=== PATIENT | female | born 1990 | race Caucasian/White ===

== ENCOUNTER 2016-07-25 14:38 | Emergency (ER) | payer OTHER ==
[~2016-07-25] VITALS: Ht 175.3 cm; Wt 97.7 kg
[~2016-07-25 14:38] MED LIST: AURALGAN14.8 ML RIGHT EAR; BACTRIM,SEPT1 TABLET PO; CIPRO HC OTIC S10 ML RIGHT EAR; CLEOCIN300 MG PO; CLINDAMYCIN HC300 MG PO; DARVOCET-N 1001 EAC1 PO; ENDOCET 5-3251 EACH PO; FLEXERIL10 MG PO; HYDROCODON-ACE1 EAC7 PO; IBUPROFEN800 MG PO; KEFLEX500 MG PO; LOTRISONE15 GM TP; METHADONE1 MG/1 ML PO; METHADONE10 MG PO; MIRALAX17 GM PO; MOTRIN800 MG PO; NAPROSYN500 MG PO; NEXPLANON68 MG SC; NOHOMEMEDS; PREDNISONE10 MG PO; PRENATAL TABLE1 EAC3 PO; Tylenol Regular Stre PO; ULTRAM50 MG PO; ZOFRAN ODT4 MG PO
[2016-07-25 16:04] LABS: ADD MIUA? YES; BILIRUBIN NEGATIVE; BLOOD LARGE; COLOR AMBER ((YELLOW)); GLUCOSE (STRIP) NEGATIVE; KETONES 5; LEUKOCYTES SMALL; NITRITE NEGATIVE; PROTEIN (STRIP) 100; SPECIFIC GRAVITY 1.029 (1.000-1.030)
[2016-07-25 16:29] LABS: BACTERIA RARE /HPF; EPITHELIAL CELLS 3+ /HPF; MUCUS TRACE /LPF; RED BLOOD CELLS 20-30 /HPF (0-5); UCUL ADDED? NO
[2016-07-25 17:03] LABS: HEMATOCRIT 42.6 % (36.0-46.0); MCH 27.6 PG (29.0-34.0); MCV 81.1 FL (83-99); MEAN PLAT.VOLUME 9.7 uM^3 (9.5-12.4); PLATELET COUNT 318 K/uL (156-360); RBC DIS.WIDTH-CV 13.2 % (11.8-14.6); RBC DIS.WIDTH-SD 38.4 % (39-53); RED BLOOD COUNT 5.25 M/uL (3.80-5.20); WHITE BLOOD COUNT 11.8 K/uL (4.1-10.2)
[2016-07-25 17:11] LABS: CHLORIDE 108 mEq/L (99-109); POTASSIUM 3.6 mEq/L (3.7-5.4); SODIUM 141 mEq/L (136-147)
[2016-07-25 17:14] LABS: GLUCOSE 111 mg/dL (70-99)
[2016-07-25 17:15] LABS: ANION GAP 12 MEQ/L (2-14); TOTAL BILIRUBIN 1.1 mg/dL (0.0-1.0)
[2016-07-25 17:17] LABS: ALKALINE PHOSPHATASE 84 IU/L (3-129); GFR ESTIMATE (CALCULATED) > 59 mL/min/
[2016-07-25 17:18] LABS: UREA NITROGEN (BUN) 15 mg/dL (9-23)
[2016-07-25 17:21] LABS: LIPASE 7 U/L (1.0-51.0)
[2016-07-25 17:26] LABS: QUANTITATIVE HCG < 4.0 MIU/ML
[2016-07-25 18:09] LABS: AMPHETAMINES QUANT VALUE 0 NG/ML; BARBITUATES QUANT VALUE 0 NG/ML; BENZODIAZEPINES QUANT VALUE 0 NG/ML; BENZODIAZEPINES, URINE SCREEN Negative (200 ng/mL); PHENCYCLIDINE QUANT VALUE 0 NG/ML
[2016-07-25] MEDS ORDERED: BENTYL20 MG PO (20:06)
[2016-07-25] MEDS ORDERED: PROMETHAZINE HC25 M1 PO (20:06)
[2016-07-25] MEDS ORDERED: PHENERGAN25 MG PR (20:06)
[2016-07-25 20:19] VITALS: BP 124/76
== END 2016-07-25 20:20 | disposition home or self-care (01) ==
LOC: EME 14:38
DX: R10.84 Generalized abdominal pain (principal); R11.2 Nausea with vomiting, unspecified; R19.7 Diarrhea, unspecified; E86.0 Dehydration; R42 Dizziness and giddiness; F17.200 Nicotine dependence, unspecified, uncomplicated
CPT/HCPCS: 80053; 80306 90; 81003; 83690; 84702; 85027; 99281; 99285; J0500; J1200; J2765; J7030; Q0169

== ENCOUNTER 2016-09-22 01:11 | Emergency (ER) | payer OTHER ==
[~2016-09-22] VITALS: Ht 175.3 cm; Wt 92.6 kg
[~2016-09-22 01:11] MED LIST changes: +BENTYL20 MG PO; +PHENERGAN25 MG PR; +PROMETHAZINE HC25 M1 PO
[2016-09-22] MEDS ORDERED: FLOXIN OTIC SOLN5 ML LEFT EAR (02:06)
[2016-09-22 02:34] VITALS: BP 124/87
[2016-09-22] MEDS ORDERED: CIPRO HC OTIC S10 ML LEFT EAR (02:36)
== END 2016-09-22 02:49 | disposition home or self-care (01) ==
LOC: EME 01:11
DX: H72.92 Unspecified perforation of tympanic membrane, left ear (principal)
CPT/HCPCS: 99281; 99284

== ENCOUNTER 2017-01-13 08:12 | Emergency (ER) | payer OTHER ==
[~2017-01-13] VITALS: Ht 175.3 cm; Wt 91.4 kg
[~2017-01-13 08:12] MED LIST changes: +CIPRO HC OTIC S10 ML LEFT EAR; +FLOXIN OTIC SOLN5 ML LEFT EAR
[2017-01-13 08:14] VITALS: BP 129/91
[2017-01-13] MEDS ORDERED: MOTRIN800 MG PO (08:30)
[2017-01-13] MEDS ORDERED: AMOXICILLIN500 MG PO (08:30)
== END 2017-01-13 08:47 | disposition home or self-care (01) ==
LOC: EME 08:12
DX: H66.91 Otitis media, unspecified, right ear (principal)
CPT/HCPCS: 99281; 99284